=== PATIENT | male | born 1985 | race Caucasian/White ===

== ENCOUNTER 2021-04-07 08:34 | Inpatient (IN) ==
[2021-04-07] MEDS ORDERED: 0.9 % Sodium Chloride 1,000 ML IV ONE (09:10)
[2021-04-07 09:53] LABS: Basophils % 0.5 %; Eosinophils # 0.1 K/mcL (0.0-0.6); Eosinophils % 1.4 %; Hemoglobin 17.3 g/dL (12.9-16.9); Immature Granulocytes % 0.4 % (0-4); Lymphocytes # 1.7 K/mcL (0.6-4.6); Lymphocytes % 22.3 %; Mean Corpuscular HGB Conc 32.6 g/dL (31.6-35.5); Mean Corpuscular Hemoglobin 29.8 pg (28.0-33.3); Mean Corpuscular Volume 91.4 fL (83.0-100.0); Mean Platelet Volume 9.1 fL (9.4-12.4); Monocytes # 0.6 K/mcL (0.0-1.3); Monocytes % 7.7 %; Neutrophils # 5.2 K/mcL (1.6-8.9); Platelet Count 327 K/mcL (140-400); Red Cell Distribution Width 14.9 % (11.5-14.5); Segmented Neutrophils % 67.7 %; White Blood Count 7.7 K/mcL (4.3-11.1)
[2021-04-07 10:17] LABS: Alanine Aminotransferase 34 Units/L (7-52); Albumin 4.8 g/dL (3.5-5.7); Albumin/Globulin Ratio 1.7 (1.1-2.2); Alkaline Phosphatase 42 Units/L (34-104); Aspartate Amino Transferase 30 Units/L (13-39); BUN/Creatinine Ratio 9 (6-26); Bilirubin,Total 0.4 mg/dL (0.3-1.0); Blood Urea Nitrogen 9 mg/dL (6-20); Calcium 9.8 mg/dL (8.6-10.3); Carbon Dioxide 27 mEq/L (23-29); Chloride 105 mEq/L (98-107); Creatine Kinase 738 Units/L (30-223); Ethanol 295 mg/dL (Less than 10); Globulin 2.9 g/dL (2.4-3.5); Glucose 99 mg/dL (70-105); Lipase 58 Units/L (11-82); Magnesium 2.4 mg/dL (1.6-2.6); Osmolality,Calculated 293 (280-300); Potassium 4.1 mEq/L (3.5-5.1); Sodium 142 mEq/L (136-145); Total Protein 7.7 g/dL (6.4-8.9); eGFR For African Americans > 60 (> 60); eGFR For Non-African Americans > 60 (> 60)
[2021-04-07 10:29] LABS: Thyroid Stimulating Hormone 0.297 mcIU/mL (0.340-5.600)
[2021-04-07 10:30] LABS: Amphetamine Screen,Urine Negative ng/mL (Cutoff=1000); Barbiturate Screen,Urine Negative ng/mL (Cutoff=200)
[2021-04-07 10:31] LABS: Benzodiazepines Screen,Urine Negative ng/mL (Cutoff=300); Cannabinoid Screen,Urine Negative ng/mL (Cutoff = 50); Cocaine Screen,Urine Negative ng/mL (Cutoff= 300); Opiate Screen,Urine Negative ng/mL (Cutoff=300); Phencyclidine Screen,Urine Negative ng/mL (Cutoff=25)
[2021-04-07] MEDS ORDERED: *HR* LORazepam 2 MG/ML VIAL IVP PRN ×2 (11:51→12:05)
[2021-04-07] MEDS ORDERED: Ondansetron 4 MG/2 ML VIAL IVP ONE (12:03)
[2021-04-07] MEDS ORDERED: Acetaminophen 325 MG TABLET PO PRN (12:04)
[2021-04-07] MEDS ORDERED: Ondansetron 4 MG/2 ML VIAL IVP PRN (12:04)
[2021-04-07] MEDS ORDERED: Thiamine (B-1) 200 MG in 0.9 % Sodium Chloride 50 ML IVPB ONE (12:07)
[2021-04-07] MEDS: Folic Acid 1 MG TABLET PO SCH (13:03)
[2021-04-07] MEDS: Vitamin B Complex/Vit C/Vit E 1 EACH TABLET PO SCH (13:03)
[2021-04-07] MEDS: *HR* LORazepam 2 MG/ML VIAL IVP PRN ×2 (19:05→20:35)
[2021-04-07] MEDS ORDERED: QUEtiapine Fumarate 100 MG TABLET PO SCH (21:00)
[2021-04-08 01:37] LABS: Hematocrit 44.8 % (37.5-50.1); Mean Corpuscular HGB Conc 32.1 g/dL (31.6-35.5); Mean Corpuscular Hemoglobin 29.6 pg (28.0-33.3); Mean Platelet Volume 8.9 fL (9.4-12.4); Platelet Count 284 K/mcL (140-400); Red Blood Count 4.87 M/mcL (4.19-5.50); Red Cell Distribution Width 14.9 % (11.5-14.5); White Blood Count 10.9 K/mcL (4.3-11.1)
[2021-04-08 01:40] LABS: Hemoglobin 14.4 g/dL (12.9-16.9)
[2021-04-08 01:54] LABS: BUN/Creatinine Ratio 12 (6-26); Blood Urea Nitrogen 12 mg/dL (6-20); Carbon Dioxide 26 mEq/L (23-29); Chloride 106 mEq/L (98-107); Glucose 108 mg/dL (70-105); Magnesium 1.6 mg/dL (1.6-2.6); Osmolality,Calculated 288 (280-300); Potassium 4.1 mEq/L (3.5-5.1); Sodium 139 mEq/L (136-145); eGFR For African Americans > 60 (> 60); eGFR For Non-African Americans > 60 (> 60)
[2021-04-08] MEDS: *HR* Enoxaparin 40 MG/0.4 ML SYRINGE SQ SCH (05:56)
[2021-04-08] MEDS: Vitamin B Complex/Vit C/Vit E 1 EACH TABLET PO SCH (08:10)
[2021-04-08] MEDS: Thiamine (B-1) 100 MG TABLET PO SCH (08:10)
[2021-04-08] MEDS: Folic Acid 1 MG TABLET PO SCH (08:10)
[2021-04-08] MEDS: *HR* LORazepam 2 MG/ML VIAL IVP PRN ×3 (08:19→17:35)
[2021-04-08 10:01] LABS: Triiodothyronine (T3) Total 0.63 ng/mL (0.87-1.78)
[2021-04-08] MEDS: QUEtiapine Fumarate 25 MG TABLET PO SCH (22:01)
[2021-04-09] MEDS: *HR* Enoxaparin 40 MG/0.4 ML SYRINGE SQ SCH (05:40)
[2021-04-09] MEDS: Folic Acid 1 MG TABLET PO SCH (08:15)
[2021-04-09] MEDS: Vitamin B Complex/Vit C/Vit E 1 EACH TABLET PO SCH (08:15)
[2021-04-09] MEDS: Thiamine (B-1) 100 MG TABLET PO SCH (08:15)
[2021-04-09] MEDS: *HR* LORazepam 2 MG/ML VIAL IVP PRN ×3 (08:28→21:45)
[2021-04-09] MEDS: QUEtiapine Fumarate 25 MG TABLET PO SCH (21:29)
[2021-04-10] MEDS: *HR* LORazepam 2 MG/ML VIAL IVP PRN (04:08)
[2021-04-10] MEDS: *HR* Enoxaparin 40 MG/0.4 ML SYRINGE SQ SCH (05:03)
[2021-04-10 07:42] VITALS: BP 138/86
[2021-04-10] MEDS: Vitamin B Complex/Vit C/Vit E 1 EACH TABLET PO SCH (09:03)
[2021-04-10] MEDS: Thiamine (B-1) 100 MG TABLET PO SCH (09:03)
[2021-04-10] MEDS: Folic Acid 1 MG TABLET PO SCH (09:03)
== END 2021-04-10 11:29 | disposition home or self-care (01) | DRG 775 ==
LOC: EMEROOARM 08:34 → 3BNU 08:34 → SUATTDRO 04-08 10:54
PROVIDERS: ADMIT Internal Medicine; ATTEND Internal Medicine